=== PATIENT | male | born 1955 | race Caucasian/White ===

== ENCOUNTER 2018-02-11 16:19 | Emergency (ER) | payer BC ==
[2018-02-11 16:26] VITALS: BP 159/96; PULSE 85; TEMP 98.4; BMI 32.1
[2018-02-11] MEDS ORDERED: SULFAMETHOXAZOLE/TRIMETHOPRIM 800MG/160MG D.S. TABLET PO ONE (16:49)
[2018-02-11] MEDS ORDERED: SULFAMETHOXAZOLE/TRIMETHOPRIM 800MG/160MG D.S. TABLET ONE (16:51)
--- NOTE | 2018-02-11 16:54 | PDOC ---
History of Present Illness - General Chief Complaint: Laceration Stated Complaint: LEFT ANKLE LAC Time Seen by Provider: 02/11/18 16:32 History Source: Patient Exam Limitations: No Limitations - History of Present Illness Initial Comments: 02/11/18 16:49 62-year-old male history of hypertension here complaining of left ankle pain soreness and redness. 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 Patient denies any fevers chills initially did not have that much pain however yesterday he started noticing increasing redness ankle swelling and pain at the abrasion site. He has been treating with topical hydration and peroxide and antibiotic ointment no fevers no chills no history of PE or DVT no chest pain or shortness of breath no other complaints Past History - Past Medical History Allergies/Adverse Reactions: Allergies Allergy/AdvReac Type Severity Reaction Status Date / Time No Known Drug Allergies Allergy Verified 02/11/18 16:20 Home Medications: Ambulatory Orders Sulfamethoxazole/Trimethoprim [Bactrim Ds Tablet] 1 each PO BID #14 tablet 02/11 CVA: No COPD: No HTN: Yes (DOES NOT TAKE HIS PRECRIBED MEDS) - Suicide/Smoking/Psychosocial Hx Smoking History: Never smoked Have you smoked in the past 12 months: No Number of Cigarettes Smoked Daily: 0 Hx Alcohol Use: Yes Drug/Substance Use Hx: No Substance Use Type: Alcohol Review of Systems - Review of Systems Constitutional: No: Chills, Diaphoresis, Fever HEENTM: No: Blurred Vision Respiratory: No: Cough, Orthopnea Cardiac (ROS): No: Chest Pain, Edema ABD/GI: No: Nausea Musculoskeletal: Yes: Joint Swelling. No: Joint Pain Integumentary: Yes: Erythema Neurological: No: Headache, Tremors All Other Systems: Reviewed and Negative *Physical Exam - Vital Signs Last Vital Signs Temp Pulse Resp BP Pulse Ox 98.4 F 85 18 159/96 100 02/11/18 16:20 02/11/18 16:20 02/11/18 16:20 02/11/18 16:20 02/11/18 16:20 - Physical Exam General Appearance: Yes: Appropriately Dressed Respiratory/Chest: positive: Lungs Clear, Normal Breath Sounds Cardiovascular: positive: Regular Rhythm, Regular Rate, S1, S2 Gastrointestinal/Abdominal: positive: Normal Bowel Sounds, Flat, Soft Musculoskeletal: positive: Normal Inspection. negative: CVA Tenderness, CVA Tenderness (R) Extremity: positive: Normal Capillary Refill (ast), Normal Range of Motion, Pedal Edema, Erythema, Other (left lateral ankle abrasion with minimal surrounding erythema mild swelling no crepitus) Integumentary: positive: Warm, Erythema, Other Neurologic: positive: Fully Oriented, Alert, Normal Mood/Affect ED Treatment Course - RADIOLOGY Radiology Studies Ordered: Category Date Time Status ANKLE-LEFT [RAD] Stat Radiology 02/11/18 16:47 Ordered Medical Decision Making - Medical Decision Making 02/11/18 16:52 62-year-old male with abrasion to the left ankle 10 days ago now with signs of mild infection. We will obtain x-ray to rule out underlying foreign body likely treat with Bactrim and topical bacitracin close follow-up 02/11/18 16:55 In addition patient is noted to be with mild elevated blood pressure. States that he is noncompliant with his medication and only takes it intermittently encouraged to take his medication daily and follow-up this primary care doctor for repeat blood pressure check within 3 days 02/11/18 17:11 xeay negative . dc home on bactrim [facility] wound care *DC/Admit/Observation/Transfer Diagnosis at time of Disposition: Abrasion, Wound infection, Hypertension - Discharge Dispostion Disposition: HOME Condition at time of disposition: Stable - Prescriptions Prescriptions: Sulfamethoxazole/Trimethoprim [Bactrim Ds Tablet] 1 each PO BID #14 tablet - Referrals - Patient Instructions Printed Discharge Instructions: DI for Wound Infection Additional Instructions: You should take Bactrim twice daily for 7 days. Wash the wound with mild soap and water. Apply bacitracin ointment twice daily. Return for fever, chills, worsening swelling, severe pain fever or any concerns. Follow-up irregular Dr. you should take your blood pressure medication daily as prescribed - Post Discharge Activity
[2018-02-11] MEDS ORDERED: DIPHTH,PERTUSS(ACELL),TET 0.5 ML DISP.SYRIN IM ONE (16:56)
== END 2018-02-11 17:19 | disposition home or self-care (01) ==
LOC: FER 16:19
PROC: 3E0234Z Introduction of Serum, Toxoid and Vaccine into Muscle, Percutaneous Approach (ICD-10-PCS; principal; 2018-02-11)
DX: L08.9 Local infection of the skin and subcutaneous tissue, unspecified (principal); I10 Essential (primary) hypertension; S90.512A Abrasion, left ankle, initial encounter; X58.XXXA Exposure to other specified factors, initial encounter; Y93.9 Activity, unspecified; Y92.89 Other specified places as the place of occurrence of the external cause
CPT/HCPCS: 73610-TC-LT-FY; 90715; 99281-25